=== PATIENT | female | born 1980 | race Caucasian/White ===

== ENCOUNTER 2022-08-31 06:13 | Inpatient (IN) | payer OTHER ==
[~2022-08-31] VITALS: Ht 167.6 cm; Wt 77.1 kg
[~2022-08-31 06:13] MED LIST: ALDOMET500 MG PO; OXYC1TAB9 PO; PRENATABS RX T1 EACH PO; ZYRTEC10 M3 PO
== END 2022-09-04 19:35 | disposition home or self-care (01) | DRG 779 ==
LOC: CIR.AMB 06:13 → O/R 17:12 → OB/GYN 17:28
PROVIDERS: ADMIT Specialist; ATTEND Specialist
PROC: BW3GZZZ Magnetic Resonance Imaging (MRI) of Pelvic Region (ICD-10-PCS; 2022-08-31)
PROC: BU4CZZZ Ultrasonography of Uterus and Ovaries (ICD-10-PCS; 2022-08-31)
PROC: 4A1HXCZ Monitoring of Products of Conception, Cardiac Rate, External Approach (ICD-10-PCS; 2022-08-31)
PROC: 10D17Z9 Manual Extraction of Products of Conception, Retained, Via Natural or Artificial Opening (ICD-10-PCS; principal; 2022-08-31 11:00)
PROC: 3E0DXGC Introduction of Other Therapeutic Substance into Mouth and Pharynx, External Approach (ICD-10-PCS; 2022-09-02)
PROC: 3E0P7VZ Introduction of Hormone into Female Reproductive, Via Natural or Artificial Opening (ICD-10-PCS; 2022-09-02)
PROC: BY49ZZZ Ultrasonography of First Trimester, Single Fetus (ICD-10-PCS; 2022-09-04)
PROC: BU4CZZZ Ultrasonography of Uterus and Ovaries (ICD-10-PCS; 2022-09-04)
DX: O02.1 Missed abortion (principal); O03.4 Incomplete spontaneous abortion without complication; O36.80X0 Pregnancy with inconclusive fetal viability, not applicable or unspecified; O26.851 Spotting complicating pregnancy, first trimester; Z3A.10 10 weeks gestation of pregnancy; Z20.822 Contact with and (suspected) exposure to COVID-19
CPT/HCPCS: 72198